=== PATIENT | female | born 1980 | race Asian ===

== ENCOUNTER 2018-07-11 10:37 | Emergency (ER) | payer BC ==
[~2018-07-11] VITALS: Ht 147.3 cm; Wt 47.6 kg
[2018-07-11 10:40] VITALS: BP 113/75
--- NOTE | 2018-07-11 10:57 | NUR ---
DR SIDHU AT BEDSIDE. PATIENT C/O LEG PAIN WHEN SITTING SINCE APRIL.
--- NOTE | 2018-07-11 10:59 | NUR ---
Patient discharged to home in stable condition. Written and verbal after care instructions given. Patient verbalizes understanding of instruction.
== END 2018-07-11 11:04 | disposition home or self-care (01) ==
LOC: ER 10:42
DX: M54.40 Lumbago with sciatica, unspecified side (principal); M79.606 Pain in leg, unspecified